=== PATIENT | male | born 2000 | race Caucasian/White ===

== ENCOUNTER 2024-10-28 03:09 | Emergency (ER) | payer SELFPAY ==
[2024-10-28 03:11] VITALS: BP 121/90; PULSE 124; RESP 17; TEMP 37.2; O2SAT 100
[2024-10-28 06:42] LABS: Influenza A QL RT-PCR Negative (Negative); Influenza B QL RT-PCR Negative (Negative); RSV RNA, RT-PCR Negative (Negative); SARS-CoV-2 RNA PCR Negative (Negative)
--- NOTE | 2024-10-28 07:04 | PC.NURSE ---
Pt father ambulatory to triage desk stating they were going to leave and go to a different hospital d/t wait times. This RN educated pt and father on importance of being seen. Pt and father bother verbalized understanding and were ambulatory out of dept w steady gait.
== END 2024-10-28 07:09 | disposition left against medical advice (07) ==
PROVIDERS: Emergency Provider Emergency Medicine
DX: R11.2 Nausea with vomiting, unspecified (principal); Z20.822 Contact with and (suspected) exposure to COVID-19
CPT/HCPCS: 87637; 99199